=== PATIENT | male | born 1950 ===

== ENCOUNTER 2024-12-30 08:22 | Outpatient (CLI) | payer MEDICARE, SELFPAY ==
--- NOTE | 2024-12-30 08:27 | MR_ITS ---
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 COMPARISON: None available. TECHNIQUE: Multiplanar, multisequence imaging is performed through the brain. Additional 3 mm imaging performed in multiple planes through the internal auditory canal. Postcontrast imaging with 20 ml's of MultiHance. No acute intracranial hemorrhage, midline shift, edema or mass effect. Very mild symmetric atrophy and minimal small vessel disease. No prior infarcts. No cerebellar infarct. Mild cerebellar atrophy. Normal hippocampal formations. Ventricles and extra-axial spaces are normal. No inferior displacement of cerebellar tonsils. Clivus and pituitary gland are normal. Internal and external auditory canals: Unremarkable. Cranial nerves VII and VIII complexes: Unremarkable. No enhancement or mass. Cerebellopontine angles: Normal. Paranasal sinuses: Normal. Mastoid air cells: Normal. Calvarium and scalp: Normal. Visualized [place] and dural venous sinuses demonstrate no abnormality. MR/MR iac's wo/w con* [id number] IMPRESSION: 1. No mass or abnormal signal at the cerebellopontine angles or along the inte rnal auditory canals. 2. No acute or remote infarct. 3. Very minimal cerebral atrophy and small vessel disease. 4. Normal hippocampal formations.
[2024-12-30] MEDS: gadobenate dimeglumine 20 mL vial IV (09:11)
== END 2024-12-30 08:23 | disposition home or self-care (01) ==
PROVIDERS: PCP Family Medicine; Visit Provider Otolaryngology
DX: H90.6 Mixed conductive and sensorineural hearing loss, bilateral (principal); G31.89 Other specified degenerative diseases of nervous system
CPT/HCPCS: 70553